=== PATIENT | male | born 1935 | race Caucasian/White ===

== ENCOUNTER → 2020-08-16 10:35 | Outpatient (CLI) | payer OTHER, SELFPAY ==
--- NOTE | 2020-08-16 10:51 | DI.MRI.S_ITS ---
PROCEDURE: MR BRAIN (PITUITARY) [facility] CON INDICATIONS: PITUITARY ADENOMA TECHNIQUE: Noncontrast sagittal and axial FLAIR, axial gradient echo, axial diffusion and ADC through the brain. Thin-slice sagittal and coronal T1 spin echo, coronal T2 fast spin echo through the pituitary. After the administration contrast, optional dynamic coronal T1 spin echo, thin-slice coronal and sagittal T1 spin echo images through the pituitary fossa; axial T1 spin echo with fat saturation through the brain. COMPARISON: [facility], RG, CT HEAD W/O CONTRAST, 08/03/2020, 9:32. FINDINGS: Image quality: Excellent. Pituitary Gland: The pituitary mass was identified 08/03/20 on a contrast-enhancement maxillofacial CT scan performed at [facility]. It was poorly visualized but present on a noncontrast head CT same day. No prior study is available for review earlier than those examinations. CSF Spaces: Ventricles are normal in size and shape. Basal cisterns are patent. No extra-axial fluid collections. Brain: No intracranial bleeds or mass effects. No abnormal intracranial enhancement. Robert-white matter interface is intact. Diffusion weighted images demonstrate no acute ischemic insults. Brainstem is normal. Normal intravascular flow voids are present. There is a contrast enhancing pituitary macro adenoma measuring up to 2.2 cm AP and 1.5 cm craniocaudad. This measures up to 2.0 cm in maximal transverse dimension. The pituitary stalk is deviated leftward due to compressive distortion cephalad from the pituitary fossa mass. The mass is mildly heterogeneous in its enhancement pattern, greater on the right than the left, and mildly distorts the adjacent cavernous sinus bilaterally, slightly greater on the right than the left. Invasion into the cavernous sinus is not seen, encasement of the adjacent carotid vessels is not found. Note is made of cephalad impingement against the lower margin of the optic nerve and chiasm. Skull and face: Calvarial marrow is normal in signal. Orbits appear normal. Sinuses: Sinuses and mastoids are clear. IMPRESSION: Relatively large pituitary mass macro adenoma as discussed, measuring up to 2.2 x 1.5 x 2.0 cm in maximal AP, transverse and craniocaudad dimensions. The mass effect distorts the pituitary stock, and impinges against but does not appear to invade the adjacent cavernous sinuse margins. Early impingement against the undersurface of the optic chiasm region is suspected. Neurosurgical consultation is recommended. Note: Earliest available comparison study is from 08/03/20 as noted above. The original clinical history was syncopal episode and therefore this mass currently appears to represent a coincidental finding.. Dictated by: Urban Zavala M.D. on 08/16/2020 at 16:06 Approved by: Urban Zavala M.D. on 08/16/2020 at 16:15
== END ==
PROVIDERS: PCP Family Medicine; Referring Provider Family Medicine; Visit Provider Family Medicine
DX: D35.2 Benign neoplasm of pituitary gland (principal)
CPT/HCPCS: 70553

== ENCOUNTER → 2021-03-21 15:35 | Outpatient (CLI) | payer OTHER, SELFPAY ==
--- NOTE | 2021-03-21 | DI.MRI.S_ITS ---
PROCEDURE: MR BRAIN (PITUITARY) [facility] CON INDICATIONS: benign neoplasm of pituitary gland TECHNIQUE: Noncontrast sagittal and axial FLAIR, axial gradient echo, axial diffusion and ADC through the brain. Thin-slice sagittal and coronal T1 spin echo, coronal T2 fast spin echo through the pituitary. After the administration contrast, optional dynamic coronal T1 spin echo, thin-slice coronal and sagittal T1 spin echo images through the pituitary fossa; axial T1 spin echo with fat saturation through the brain. COMPARISON: [facility], MR, MR BRAIN (PITUITARY) [facility], 08/16/2020, 11:56. FINDINGS: Image quality: Excellent. Pituitary Gland: There is again seen an ovoid pituitary mass, which measures 1.9 cm transversely by 1.4 cm craniocaudal, with an AP extent of 1.8 cm. There is moderate enhancement seen on the right side, with relatively poor enhancement seen on the left. The superior extent of this mass impinges upon the optic chiasm, with mass effect upon the optic chiasm itself. On precontrast T1 weighted images, the normal T1 bright spot can be seen posteriorly. The pituitary stock is deviated to the left, as seen on series 19, image 6. CSF Spaces: Ventricles are normal in size and shape. Basal cisterns are patent. No extra-axial fluid collections. Brain: No intracranial bleeds or mass effects. No abnormal intracranial enhancement. Robert-white matter interface is intact. Diffusion weighted images demonstrate no acute ischemic insults. Brainstem is normal. Normal intravascular flow voids are present. Skull and face: Calvarial marrow is normal in signal. Orbits appear normal. Sinuses: Sinuses and mastoids are clear. IMPRESSION: Pituitary mass again seen, which measures minimally smaller on the current study than on prior. 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 Mass effect is seen upon the optic chiasm, which is deviated superiorly. Please correlate with visual symptoms. Dictated by: Lemuel Dover M.D. on 03/21/2021 at 15:59 Approved by: Lemuel Dover M.D. on 03/21/2021 at 16:02
== END ==
PROVIDERS: PCP Family Medicine; Referring Provider Neurological Surgery; Visit Provider Neurological Surgery
DX: D35.2 Benign neoplasm of pituitary gland (principal)
CPT/HCPCS: 70553

== ENCOUNTER 2025-07-01 09:40 | Emergency (ER) | payer MEDICARE, SELFPAY ==
[2025-07-01] VITALS (12 sets, daily range): BP systolic 133–213; BP diastolic 65–93; PULSE 68–79; RESP 13–22; TEMP 37.1; O2SAT 91–99; BMI 24.7
--- NOTE | 2025-07-01 09:41 | ED.SYNCOPE ---
HPI - Syncope General Chief Complaint: Syncope Stated Complaint: syncope at cardio clinic Time Seen by Provider: 07/01/25 09:41 Source: patient, EMS, RN notes reviewed and old records reviewed Mode of arrival: EMS Limitations: no limitations History of Present Illness HPI narrative: 89-year-old male history of coronary artery disease with prior cardiac stents known valvular disease who presents with complaint of syncopal episode at the cardiology clinic earlier today. Patient was having a regular follow up visit had an echo as an outpatient in the last several weeks. Patient states he felt a little bit funny while he was seated and his who was present states he passed out while seated for 2 or 3 minutes and then returned to his baseline. No shaking or abnormal movements were appreciated, no facial droop. Patient returned to his normal baseline within a minute. Patient states no fevers recently he has got a cough although he states this is not new or worse than normal. He has a known asthma has not use his inhaler today. He denies chest pain or pressure, no shortness of breath. He has occasionally had some nausea or vomiting he did throw up once at the office. He denies any diarrhea or constipation, no urinary symptoms. Denies any new swelling in extremities. EMS notes that has glucose was normal, he also had an EKG after the event at the office and they told him that his QT was shorter than it normally is but was otherwise similar to his priors. Patient takes statin daily, uses inhaler, takes Myrbetriq, Lasix and aspirin daily. He has had prior cardiac stents. Family was informed they are going to refer him for a valve replacement in his aorta. He has not had any other prior cardiac interventions. Reports an allergy to metronidazole. No tobacco, alcohol or recreational drugs. Patient's notes he passes out once about every 3 months in his this is atypical. Patient notes he is DNR/DNI, at bedside and in agreement. Related Data Home Medications ?Medication ?Instructions ?Recorded ?Confirmed albuterol 90 mcg/actuation aerosol 90 mcg inhalation PRN SOB 07/01/25 07/01/25 inhaler atorvastatin 80 mg tablet 80 mg PO DAILY 07/01/25 07/01/25 furosemide 20 mg tablet 20 mg PO DAILY 07/01/25 07/01/25 mirabegron 50 mg tablet,extended 50 mg PO DAILY 07/01/25 07/01/25 release 24 hr (Myrbetriq) mometasone-formoterol HFA 200 2 inh inhalation BID 07/01/25 07/01/25 mcg-5 mcg/actuation aerosol inhaler (Dulera) Allergies Allergy/AdvReac Type Severity Reaction Status Date / Time No Known Drug Allergies Allergy Verified 07/01/25 10:14 Review of Systems Review of Systems ROS Unobtainable: All systems reviewed & are unremarkable except as noted in HPI and below Exam Narrative Exam Narrative: GENERAL: Alert and oriented x three, elderly male in mild distress HEENT: Head normocephalic, atraumatic, EOMI, pupils reactive, face symmetric, moist mucous membranes NECK: Supple, full range of motion CARDIOVASCULAR: Regular rate and rhythm without murmurs, rubs or gallops. No JVD. No edema bilateral lower extremities. RESPIRATORY: Breath sounds equal bilaterally, patient has a mild wheeze upper chest bilaterally, no rhonchi, no tachypnea accessory muscle use. Patient does have occasional dry cough. As able to speak in full sentences. ABDOMEN: Soft, nontender. Normoactive bowel sounds all 4 quadrants. No guarding or rebound, rigidity, no mass : No CVA tenderness EXTREMITIES: Normal range of motion, no clubbing or edema. Neurovascularly intact NEUROLOGICAL: Cranial nerves II through XII grossly intact. Moving all extremities SKIN: Warm, dry, no petechiae, no rashes or lesions. Initial Vital Signs Initial Vital Signs: Vital Signs Pulse Rate 77 07/01/25 09:47 Respiratory Rate 20 07/01/25 09:47 Blood Pressure 165/78 H 07/01/25 09:47 Pulse Oximetry 94 07/01/25 09:47 Course Orders Ordered: ED Orders 07/01/25 09:40 Complete Blood Count AUTO DIFF Stat Comprehensive Metabolic Panel Stat Lipase Stat Magnesium Stat NT-proBNP (BNP-Adult 18+) Stat Troponin I Stat 07/01/25 09:47 XR chest 1V Stat EKG-12 Lead Stat 07/01/25 10:45 Covid-19 + FLU A/B + RSV - PCR Stat 07/01/25 11:45 Trop I [Troponin I] Stat Discontinued Medications Albuterol/Ipratropium (Albuterol/Ipratropium 3 Ml Ampul) 3 ml INH NOW ONE Stop: 07/01/25 10:21 Last Admin: 07/01/25 10:22 Dose: 3 ml Documented By: RB Furosemide (Furosemide 40 Mg/4 Ml Vial) 40 mg IV NOW ONE Stop: 07/01/25 11:38 Last Admin: 07/01/25 11:52 Dose: 40 mg Documented By: RB Sodium Chloride (Normal Saline 0.9%) 500 mls @ 1,000 mls/hr IV BOLUS ONE Stop: 07/01/25 10:41 Last Infusion: 07/01/25 10:52 Dose: Infused Documented By: Admin: 07/01/25 10:18 Dose: 1,000 mls/hr Documented By: RB Methylprednisolone (Methylprednisolone Succ 125 Mg/2 Ml Vial) 125 mg IV NOW ONE Stop: 07/01/25 10:32 Last Admin: 07/01/25 10:49 Dose: 125 mg Documented By: RB Ondansetron HCl (Ondansetron 4 Mg/2 Ml Inj) 4 mg IV NOW ONE Stop: 07/01/25 10:04 Last Admin: 07/01/25 10:18 Dose: 4 mg Documented By: RB Vital Signs Vital signs: Vital Signs - 8 hr 07/01/25 09:47 07/01/25 09:47 07/01/25 09:52 Temperature 98.7 F Pulse Rate 77 71 Respiratory Rate 20 20 Blood Pressure 165/78 H 165/78 H Pulse Oximetry 94 99 Oxygen Delivery Method Room Air 07/01/25 10:00 07/01/25 10:00 07/01/25 10:30 Temperature Pulse Rate 75 Respiratory Rate Blood Pressure 133/74 142/65 H Pulse Oximetry 96 Oxygen Delivery Method 07/01/25 10:30 07/01/25 11:00 07/01/25 11:00 Temperature Pulse Rate 71 75 Respiratory Rate 13 18 Blood Pressure 147/68 H Pulse Oximetry 93 94 Oxygen Delivery Method Room Air Room Air 07/01/25 11:30 07/01/25 11:31 07/01/25 11:31 Temperature Pulse Rate 70 68 Respiratory Rate 15 15 Blood Pressure 146/68 H Pulse Oximetry 91 94 Oxygen Delivery Method Room Air Room Air 07/01/25 12:00 07/01/25 12:30 07/01/25 12:30 Temperature Pulse Rate 74 72 Respiratory Rate 21 13 Blood Pressure 197/84 H Pulse Oximetry 95 94 Oxygen Delivery Method Room Air 07/01/25 13:00 07/01/25 13:00 07/01/25 13:30 Temperature Pulse Rate 71 Respiratory Rate 17 Blood Pressure 192/84 H 213/93 H Pulse Oximetry 94 Oxygen Delivery Method 07/01/25 13:30 07/01/25 14:00 Temperature Pulse Rate 79 79 Respiratory Rate 17 22 Blood Pressure Pulse Oximetry 92 94 Oxygen Delivery Method MDM - Syncope Lab Data 07/01/25 09:40 07/01/25 09:40 Labs: Lab Results 07/01/25 07/01/25 07/01/25 Range/Units 09:40 10:45 11:45 WBC 5.9 (4.5-11.0) X10^3/uL RBC 4.35 L (4.5-5.9) X10^6/uL Hgb 13.0 L (13.5-17.5) g/dL Hct 38.8 L (41-53) % MCV 89.3 (80-100) fL MCH 29.8 (26-34) PG MCHC 33.4 (30-36) % RDW 14.5 (11.6-14.8) % Plt Count 180 (150-400) X10^3/uL Neut % (Auto) 49.8 L (50-75) % Lymph % (Auto) 25.9 (25-40) % Brule % (Auto) 15.0 H (3-14) % Eos % (Auto) 8.2 H (2-4) % Baso % (Auto) 1.1 (0-2) % Neut # (Auto) 2900 (5518-9460) /uL Lymph # (Auto) 1500 (1541-2660) /uL Brule # (Auto) 900 (0-900) /uL Eos # (Auto) 500 H (0-450) /uL Baso # (Auto) 100 (0-100) /uL Sodium 134 L (137-145) mmol/L Potassium 3.8 (3.4-5.1) mmol/L Chloride 100 (98-107) mmol/L Carbon Dioxide 26 (22-32) mmol/L BUN 45 H (9-20) mg/dL Creatinine 1.09 (0.66-1.25) mg/dL Estimated GFR > 60 (>60) mL/min BUN/Creatinine Ratio 41.3 H (6-22) Glucose 143 H (70-99) mg/dL Calcium 9.6 (8.4-10.2) mg/dL Magnesium 2.3 (1.6-2.3) mg/dL Total Bilirubin 0.4 (0.2-1.3) mg/dL AST 81 H (17-59) IU/L ALT 47 (<50) IU/L Alkaline Phosphatase 109 (38-126) U/L Troponin I 0.062 H 0.063 H (0.01-0.034) ng/mL NT-Pro-B Natriuret Pep 3250 H (<450) pg/mL Total Protein 6.8 (6.3-8.2) g/dL Albumin 3.7 (3.5-5.0) g/dL Globulin 3.1 (1.7-4.1) g/dL Albumin/Globulin Ratio 1.2 (1.0-2.8) Lipase 26 (23-300) U/L SARS-CoV-2 (PCR) Negative (Negative) Influenza A (RT-PCR) Flu a negative (NEGATIVE) Influenza B (RT-PCR) Flu b negative (NEGATIVE) RSV (PCR) Negative (Negative) ECG Data Attestation: I personally reviewed and interpreted this ECG as follows: Prior ECG tracings: not available for review Interpretation: Sinus rhythm first-degree AV block, right bundle-branch block left anterior fascicular block rate of 75 LA 296 QRS of 144 QTC of 495. No acute ST-elevation depression noted MDM Narrative Medical decision making narrative: EKG shows sinus rhythm first-degree AV block right bundle-branch block with a left anterior fascicular block. Labs shows normal white count hemoglobin of 13 platelets of 180, predominance of monocytes. Chemistries shows sodium 134 BUN 45 creatinine is 1.09 electrolytes are otherwise appropriate magnesium Glucose is 143, AST is 81 ALT is normal with a normal bilirubin alk-phos and lipase. Troponin is 0.062 with BNP 3250. Repeat trop is 0.063. COVID/influenza/RSV is negative Chest x-ray, no imaging explanation found for patient's presenting symptoms. At least 1 coronary artery stent can be seen. Patient has a known asthma has a bit wheezy on exam occasionally 89-90% he has a dry persistent cough but no other increased work of breathing. Received albuterol and steroids. BUN is also noted to be elevated received fluids. Patient had DuoNebs, Solu-Medrol for wheezing. Patient did has a little bit of fluid as BUN was elevated but BNP is elevated do not have prior for comparison but received Lasix Spoke with the patient's Cardiology, Dr Markie Stone @ [phone]. He was able to review the note from patient's computed tomography technician we would like to transfer for potential pacemaker placement they will also have patient evaluated had moderate to severe aortic stenosis with a EF of 49% on last echo but feel main goal currently is for pacemaker. Coordinator we will page out hospitalist for [facility]. Spoke with hospitalist, Dr. Benitez Burrell, who accepts for tranfer to Step down unit. Plan for transport ALS awaiting bed assignment. Discussed with the patient's family they are agreeable to transfer he notes he is DNR/DNI but it is open to pacemaker placement. Patient has pacer pads in place. Discharge Plan Departure Patient Disposition: [facility] Clinical Impression: Syncope, Symptomatic bradycardia Prescriptions: No Action atorvastatin 80 mg tablet 80 mg PO DAILY furosemide 20 mg tablet 20 mg PO DAILY mirabegron [Myrbetriq] 50 mg tablet extended release 24 hr 50 mg PO DAILY albuterol 90 mcg/actuation aerosol 90 mcg inhalation PRN Rx Instructions: 1-2 puffs PRN for wheezing Dulera 200-5 mcg/actuation HFA aerosol inhaler 2 inh inhalation BID Referrals: Claudy Puente MD [Primary Care Provider, [facility]]
--- NOTE | 2025-07-01 09:47 | DI.RAD.S_ITS ---
PROCEDURE: XR CHEST 1V INDICATIONS: syncope TECHNIQUE: One view of the chest was acquired. COMPARISON: None. FINDINGS: Surgical changes and devices: At least 1 coronary artery stent can be seen. Lungs and pleura: Lungs are clear. No pleural effusions or pneumothorax. Mediastinum: The cardiac contours are within normal limits. The aorta demonstrates calcification and tortuosity. Bones and chest wall: No suspicious bony lesions. Overlying soft tissues appear unremarkable. IMPRESSION: No imaging explanation is found for this patient's presenting symptoms. Clear lungs. Dictated by: Lemuel Dover M.D. on 07/01/2025 at 9:48 Approved by: Lemuel Dover M.D. on 07/01/2025 at 9:48
--- NOTE | 2025-07-01 09:47 | EKG_ITS ---
[address] [address] [address] [address] Test Date: 2025-07-01 Pat Name: Marin Da Silva Department: [facility] Room: Gender: Male [employer] Loan Processing Clerk: : [id number] Requested By: Order Number: [id number] Reading MD: Sam Garcia MD Measurements Intervals [place] Rate: 75 P: 46 MA: 296 QRS: -69 QRSD: 144 T: 64 QT: 444 QTc: 495 Interpretive Statements Poor data quality, interpretation may be adversely affected Sinus rhythm with 1st degree AV block Right bundle branch block Left anterior fascicular block Bifascicular block Septal infarct , age undetermined NO PRIOR TRACING Electronically Signed On 07-01-2025 15:15:25 PST by Sam Garcia MD
[2025-07-01 10:04] LABS: Add Manual Diff / Slide Review NO; Hematocrit 38.8 % (41-53); Hemoglobin 13.0 g/dL (13.5-17.5); Lymphocytes Absolute Auto 1500 /uL (1100-4500); Mean Corpuscular HGB Conc 33.4 % (30-36); Mean Corpuscular Hemoglobin 29.8 PG (26-34); Mean Corpuscular Volume 89.3 fL (80-100); Platelet Count 180 X10^3/uL (150-400)
[2025-07-01 10:13] LABS: Alanine Aminotransferase 47 IU/L (<50); Albumin 3.7 g/dL (3.5-5.0); Albumin Globulin Ratio 1.2 (1.0-2.8); Alkaline Phosphatase 109 U/L (38-126); Blood Urea Nitrogen 45 mg/dL (9-20); Calcium 9.6 mg/dL (8.4-10.2); Carbon Dioxide 26 mmol/L (22-32); Chloride 100 mmol/L (98-107); Estimated Glomerular Filt Rate > 60 mL/min (>60); Globulin 3.1 g/dL (1.7-4.1); Glucose 143 mg/dL (70-99); HEMOLYSIS 16 (0-50); Lipase 26 U/L (23-300); Potassium 3.8 mmol/L (3.4-5.1); Sodium 134 mmol/L (137-145); Total Protein 6.8 g/dL (6.3-8.2)
[2025-07-01] MEDS: ONDANSETRON 4 MG/2 ML INJ IV (10:18)
[2025-07-01] MEDS: SODIUM CHLORIDE 0.9% 500 ML 1000 ML IV (10:18)
[2025-07-01] MEDS: ALBUTEROL/IPRATROPIUM 3 ML AMPUL INH (10:22)
[2025-07-01 10:24] LABS: NT-proBNP (BNP-Adult 18+) 3250 pg/mL (<450); Troponin I 0.062 ng/mL (0.01-0.034)
[2025-07-01 10:35] LABS: Magnesium 2.3 mg/dL (1.6-2.3)
[2025-07-01] MEDS: methylPREDNISolone succ 125 MG/2 ML VIAL IV (10:49)
[2025-07-01 11:28] LABS: Influenza A - CEPHEID Flu A NEGATIVE (NEGATIVE); Influenza B - CEPHEID Flu B NEGATIVE (NEGATIVE)
[2025-07-01 11:32] LABS: COVID-19 CEPHEID 4-PLEX PCR Negative (Negative)
[2025-07-01] MEDS: FUROSEMIDE 40 MG/4 ML VIAL IV (11:52)
[2025-07-01 12:15] LABS: Troponin I 0.063 ng/mL (0.01-0.034)
== END 2025-07-01 15:20 | disposition short-term general hospital (02) ==
PROVIDERS: Emergency Provider Emergency Medicine; PCP Family Medicine
DX: R55 Syncope and collapse (principal); R00.1 Bradycardia, unspecified; Z86.79 Personal history of other diseases of the circulatory system
CPT/HCPCS: 36415; 71045; 80053; 83690; 83735; 83880; 84484; 85025; 87637; 93005; 96361; 96374; 96375; 99284; J1938; J2405; J2919; J7040